=== PATIENT | female | born 1995 | race Caucasian/White ===

== ENCOUNTER → 2019-05-30 | Outpatient (REF) | payer BC ==
[2019-05-30 20:31] LABS: HEMOGLOBIN 14.2 g/dl (12.0-15.5); MEAN CORPUSCULAR HEMOGLOBIN 30.8 pg (27.0-33.0); MEAN CORPUSCULAR VOLUME 93.3 fl (80.0-96.0); PLATELET COUNT, AUTOMATED 251 10^3/uL (150-450); RED BLOOD COUNT 4.61 10^6/uL (4.00-5.40)
[2019-05-30 20:37] LABS: APPEARANCE, URINE CLEAR (CLEAR); BACTERIA, URINE AUTO 1+ (NEGATIVE); BILIRUBIN, URINE AUTO NEGATIVE (NEGATIVE); BLOOD, URINE BLOOD NEGATIVE (NEGATIVE); COLOR, URINE STRAW (YELLOW); GLUCOSE, URINE (UA) AUTO NEGATIVE (NEGATIVE); KETONE, URINE AUTO NEGATIVE (NEGATIVE); LEUKOCYTE ESTERASE, URINE AUTO NEGATIVE (NEGATIVE); NITRITE, URINE AUTO NEGATIVE (NEGATIVE); PROTEIN, URINE AUTO NEGATIVE (NEGATIVE); RBC, URINE AUTO 1 /HPF (0-3); SPECIFIC GRAVITY URINE AUTO 1.003 (1.002-1.035); SQUAMOUS EPITHELIAL CELL UR AU 0 /HPF (0-6); UROBILINOGEN, URINE AUTO 0.2 mg/dL (0.0-2.0); WBC, URINE AUTO 0 /HPF (0-3)
[2019-05-30 20:47] LABS: BLOOD UREA NITROGEN 12 MG/DL (7-18); CALCIUM LEVEL 9.1 MG/DL (8.5-10.1); CARBON DIOXIDE LEVEL 26 MEQ/L (21-32); CHLORIDE LEVEL 106 MEQ/L (98-107); CHOLESTEROL LEVEL 180 MG/DL (<200); CHOLESTEROL RISK RATIO 2.432 (<5); CREATININE FOR GFR 0.87 MG/DL (0.55-1.30); FREE T4 1.03 NG/DL (0.76-1.46); GLOMERULAR FILTRATION RATE > 60.0 (>60); GLUCOSE, FASTING 101 MG/DL (70-100); HDL CHOLESTEROL 74 MG/DL (>40); LDL CHOLESTEROL 86 MG/DL (<100); NON-HDL-C 106 MG/DL; POTASSIUM SERUM 4.1 MEQ/L (3.5-5.1); SODIUM LEVEL 138 MEQ/L (136-145); TRIGLYCERIDES LEVEL 99 MG/DL (<150)
[2019-06-04 14:52] LABS: TISSUE TRANSGLUTAMINASE IgA <2 U/mL (0-3); TISSUE TRANSGLUTAMINASE IgG <2 U/mL (0-5); VITAMIN A, RETINOL LEVEL 60.8 ug/dL (18.9-57.3); VITAMIN D 1,25 DIHYDROXY 50.8 pg/mL (19.9-79.3); VITAMIN E(ALPHA TOCOPHEROL) 14.6 mg/L (5.9-19.4); VITAMIN E(GAMMA TOCOPHEROL) 0.4 mg/L (0.7-4.9); VITAMIN K1 0.52 ng/mL (0.13-1.88)
== END ==
LOC: M SFHCPLAZ 14:46
DX: R03.0 Elevated blood-pressure reading, without diagnosis of hypertension (principal); K90.0 Celiac disease

== ENCOUNTER → 2019-06-06 | Outpatient (CLI) | payer BC ==
--- NOTE | 2019-06-06 16:32 | REP ---
RENAL ULTRASOUND WITH DUPLEX DOPPLER RENAL ARTERY EVALUATION. Real-time ultrasound evaluation of the kidneys is performed. Study is somewhat limited due to bowel gas. The kidneys appear normal in size and echotexture. Right kidney measures 11.2 x 5.2 x 4.1 cm and left kidney 11.2 x 5.5 x 6.1 cm. There is no hydronephrosis or nephrolithiasis identified. The urinary bladder is mildly distended. A left ureteral jet is visualized with Doppler color evaluation. The right ureteral jet is not visualized. Real-time ultrasound evaluation and duplex Doppler interrogation of the renal arteries is performed bilaterally. Peak systolic velocity of the abdominal aorta at the level of the renal artery is 109 cm/s. Peak systolic velocity of the visualized main right renal artery is 94.6 cm/s. Mid aspect of each renal artery is obscured by overlying bowel. Renal to aortic ratio right kidney is 0.9 resistive indices are measured in the upper, middle and lower thirds of the right kidney and range between 0.54 and 0.69. Acceleration times range between 0.015 and 0.044. Peak systolic velocity of the main left renal artery is 100 cm/s, renal to aortic ratio is 0.92. Resistive indices left kidney range between 0.50 and 0.59. Acceleration times are in the range of 0.029. IMPRESSION: No compelling duplex Doppler sonographic evidence of significant renal artery stenosis although the study is somewhat limited due to overlying bowel gas. Electronically Signed by Ang Brewster MD 06/09/2019 05:00 P
== END ==
LOC: M RAD 08:39
PROVIDERS: ATTEND Internal Medicine
DX: R03.0 Elevated blood-pressure reading, without diagnosis of hypertension (principal); R14.3 Flatulence

== ENCOUNTER → 2019-08-21 | Outpatient (REF) | payer BC | LOC: M SFHCPLAZ 15:46 | DX: R03.0 Elevated blood-pressure reading, without diagnosis of hypertension (principal) ==

== ENCOUNTER → 2019-08-22 | Outpatient (CLI) | payer BC | LOC: M LAB 13:01 | PROVIDERS: ATTEND Internal Medicine | DX: R03.0 Elevated blood-pressure reading, without diagnosis of hypertension (principal) ==

== ENCOUNTER → 2019-09-02 | Outpatient (CLI) | payer BC | LOC: M LAB 07:29 | PROVIDERS: ATTEND Internal Medicine | DX: I10 Essential (primary) hypertension (principal) ==

== ENCOUNTER → 2019-11-12 | Outpatient (REF) | payer BC ==
[2019-11-14 08:06] LABS: HERPES ZOSTER, VARICELLA IgG 711 index (Immune >165); MUMPS VIRUS IgG ANTIBODY <9.0 AU/mL (Immune >10.9); RUBEOLA IgG ANTIBODY 54.3 AU/mL (Immune >16.4)
[2019-11-14 08:36] LABS: RUBELLA IgG QUALITATIVE IMMUNE (IMMUNE)
== END ==
LOC: M SFHCPLAZ 14:56
PROVIDERS: ATTEND Internal Medicine
DX: Z92.29 Personal history of other drug therapy (principal); Z23 Encounter for immunization; Z11.59 Encounter for screening for other viral diseases